=== PATIENT | female | born 1950 | race American Indian/Alaskan Native ===

== ENCOUNTER 2016-10-04 12:57 | Outpatient (CLI) | payer OTHER ==
[2016-10-04] MEDS ORDERED: XYLOCAINE 1% 20 mL ONE (13:15)
--- NOTE | 2016-10-04 14:32 | Short Stay Summary ---
Invasive Assessment - Date Date of service: 10/04/16 - History & Physical H&P: obtained from office Allergies/Adverse Reactions: Allergies morphine Adverse Reaction (Unverified 10/04/16 12:58) Anaphylaxis ALL ALLERGY MEDICATIONS Adverse Reaction (Uncoded 10/04/16 12:59) Headache - Procedure Note Procedure: Right stereotactic biopsy with clip placement Findings: see path Pathology: list (core biopsy) Specimen disposition: to lab Estimated blood loss: none Tolerated Procedure Well: Yes Complications: none Invasive Assessment DC Note - Disposition Disposition: DISCHARGED TO HOME OR SELFCARE - Instructions Activity: no restrictions Follow up with: ABDIRAHMAN HOOKS MD [Staff Physician] - 7 Days
--- NOTE | 2016-10-04 15:05 | Operative Report ---
PREOPERATIVE DIAGNOSIS: Abnormal microcalcifications, right breast. POSTOPERATIVE DIAGNOSIS: Abnormal microcalcifications, right breast. PROCEDURE: Right breast stereotactic biopsy with clip placement. TYPE OF ANESTHESIA: Local. SURGEON: Irina Lorenzo MD COILED COIL INSPECTOR: None. ESTIMATED BLOOD LOSS: None. COMPLICATIONS: None. INDICATIONS: This is a 66-year-old woman noted to have an abnormal area of microcalcifications in the right upper outer quadrant. She required biopsy for diagnosis. DESCRIPTION OF PROCEDURE: The patient was brought to the stereotactic table, laid prone on the table. We approached the lesion from medial lateral position. The breast was placed in compression. Personnel Coordinator imaging was taken, lesion was visualized and then stereotactic imaging was taken and the lesion was targeted. At this point, the breast was prepped with Betadine. At the site of target, 1% lidocaine was infiltrated. Next, an 8 gauge mammotome device was introduced. Stereotactic images confirmed the placement. The biopsy gun was fired, again imaging confirmed the placement. Next, circumferential biopsy was performed and cores were obtained. Specimen mammogram showed removal of microcalcifications targeted. At this point, a clip was placed and the probe was removed from the breast and the stereotactic images confirmed the placement of the clip. Skin isidro was reapproximated using Steri-Strips and a bandage was applied. The patient tolerated the procedure. There were no immediate complications. JOB# [id number] DA/ESSIE
--- NOTE | 2016-10-05 10:11 | Mammography Report ---
Stereotactic biopsy, specimen mammography, motor placement: This examination was performed by Dr. Lorenzo. A small blue tip calcifications were targeted in the inferolateral right breast. The specimen mammogram identifies calcifications in 3 of the specimens. A marker was placed and a followup two-view mammogram confirmed removal of the targeted calcifications and clip placement. A small hematoma is identified.
== END 2016-10-04 12:58 | disposition home or self-care (01) ==
LOC: MAMMO 12:57
PROVIDERS: ATTEND Surgery
DX: R92.0 Mammographic microcalcification found on diagnostic imaging of breast (principal); N64.89 Other specified disorders of breast
CPT/HCPCS: 19081; 88305; A4648; G0206

== ENCOUNTER 2016-11-16 10:56 | Outpatient (CLI) | payer OTHER ==
--- NOTE | 2016-11-16 12:09 | Ultrasound Report ---
Right breast ultrasound: The patient had a biopsy in September currently presenting with generalized breast pain. No prior ultrasound exams for comparison at our facility. Global ultrasound demonstrates a 9 mm sized area of homogeneous hypoechogenicity in the lateral breast at 9:00. There is a focal echodensity within it consistent with a clip from prior biopsy. It is of note that prior biopsy was for calcifications not mass. In the retroareolar 12:00 location there is an elongated inhomogeneously hypoechoic but relatively well defined nodule measuring 19 mm in greatest dimension. No vascularity internally on color imaging. No other findings. Impressions: 1. The 9:00 lesion is consistent with biopsy site and could be hematoma from prior procedure. 2. 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 Recommendation: Repeat right breast ultrasound in 6 months to reevaluate both findings. Clinical followup for breast pain. Any additional evaluation at this time should be based on your concern. It is of note that we did not perform a mammogram as ordered because the patient could not tolerate any breast compression.
== END 2016-11-16 10:57 | disposition home or self-care (01) ==
LOC: MAMMO 10:56
PROVIDERS: ATTEND Specialist
DX: N64.4 Mastodynia (principal); R92.8 Other abnormal and inconclusive findings on diagnostic imaging of breast